=== PATIENT | female | born 1955 | race African-American/Black ===

== ENCOUNTER → 2016-12-13 | Outpatient (CLI) | payer BC ==
[~2016-12-13] MED LIST: ASPIRIN PO; ATENOLOL PO; CIPRO PO; CRESTOR PO; WELLBUTRIN PO
--- NOTE | ~2016-12-13 | US24 ---
[facility] A Service of [facility] & [facility] RADIOLOGY TEXT RESULTS PATIENT: RONNIE CHIRINOS LOCATION: [facility] : 55 UNIT #: [id number] AGE: [address]: Maynor Silva MD SEX: F ORDER DR: [id number] [facility]. [place], [place] [address] [id number] O MR#: [id number] Acc #: [id number] NAME: RONNIE CHIRINOS. : 1955 SEX: F STUDY DATE/TIME: 12/13/2016 15:12 UNIT: [facility] ROOM: STUDY DESCRIPTION: US Breast Unilateral Attending Physician: Maynor Silva M.D. Ordering Physician: Maynor Silva M.D. Primary Care Physician: Maynor Silva M.D. MEDICAL IMAGING REPORT This report is preliminary unless electronic signature is present EXAM Left breast ultrasound, 12/13/2016 INDICATION Palpable abnormality in the upper left breast. PROCEDURE Estrella-scale imaging of the left breast in the area of palpable concern 11 o'clock position. COMPARISON Concurrently performed bilateral diagnostic mammogram. FINDINGS/IMPRESSION Refer to separately dictated diagnostic mammogram for complete workup, findings and recommendations. BIRADS: 1 Negative Dictated by... Rajendra Uribe M.D. THIS IS AN ELECTRONICALLY VERIFIED REPORT Rajendra Uribe M.D. at 12/14/2016 2:11 PM MEGAND/guillermina TD: 12/13/2016 23:28 JOB #: [id number] MEDICAL IMAGING REPORT COPY
--- NOTE | ~2016-12-13 | MY6 ---
[facility] A Service of [facility] RADIOLOGY TEXT RESULTS PATIENT: RONNIE CHIRINOS LOCATION: [facility] : 55 UNIT #: [id number] AGE: [address]: Maynor Silva MD SEX: F ORDER DR: [id number] [facility] [address] [facility]. [place], [place] [address] [id number] O MR#: [id number] Acc #: [id number] NAME: RONNIE CHIRINOS. : 1955 SEX: F STUDY DATE/TIME: 12/13/2016 14:58 UNIT: [facility] ROOM: STUDY DESCRIPTION: MY Mammogram Dx Dig Harsha Attending Physician: Maynor Silva M.D. Ordering Physician: Maynor Silva M.D. Primary Care Physician: Maynor Silva M.D. MEDICAL IMAGING REPORT This report is preliminary unless electronic signature is present EXAM Bilateral digital diagnostic mammogram, 12/13/2016 INDICATION Palpable lump in the left chest/upper breast. PROCEDURE Bilateral CC and MLO views. Left true lateral view. Images obtained on a digital mammography unit, FDA-approved CAD device utilized. COMPARISON 07/22/2015 FINDINGS Scattered fibroglandular density. There is no dominant mass and no suspicious calcification. Targeted ultrasound in the area of patient's palpable concern shows no sonographic abnormality. There is a rib immediately underlying this area. It is not clear whether the rib represents the palpable abnormality of concern. IMPRESSION Negative bilateral diagnostic mammogram and targeted left breast ultrasound. Recommend continued clinical followup and patient to continue with yearly screening mammography. Patients over the age of 40 are entered into a reminder system with target due date for the next mammogram. A result letter will also be sent to the patient. BIRADS: 1 Negative [facility] A Service of [facility] RADIOLOGY TEXT RESULTS PATIENT: RONNIE CHIRINOS LOCATION: [facility] : 55 UNIT #: [id number] AGE: [address]: Maynor Silva MD SEX: F ORDER DR: Dictated by... Rajendra Uribe M.D. THIS IS AN ELECTRONICALLY VERIFIED REPORT Rajendra Uribe M.D. at 12/14/2016 2:11 PM RADAMES/guillermina TD: 12/13/2016 23:01 JOB #: [id number] MEDICAL IMAGING REPORT COPY
== END | disposition home or self-care (01) ==
LOC: CMAM 14:41
DX: N63 Unspecified lump in breast (principal)
CPT/HCPCS: 76641; G0204